=== PATIENT | male | born 1990 | race Hispanic/Latino ===

== ENCOUNTER 2024-02-22 22:07 | Emergency (ER) | payer BC ==
[2024-02-22] MEDS ORDERED: Ondansetron ODT 4 MG TAB ONE (22:26)
== END 2024-02-22 22:35 | disposition home or self-care (01) ==
LOC: BURERS 22:07
DX: F41.9 Anxiety disorder, unspecified (principal); R11.0 Nausea
CPT/HCPCS: 99283; Q0162